=== PATIENT | male | born 2000 | race Caucasian/White ===

== ENCOUNTER 2018-03-15 19:48 | Emergency (ER) | payer OTHER ==
[~2018-03-15] VITALS: Ht 182.8 cm; Wt 93.0 kg
[~2018-03-15 19:48] MED LIST: CEPHALEXIN500 M1 PO; CLARITIN10 MG PO; FLEXERIL10 MG PO; FLONASE ALLERG9.9 ML NAS; MOTRIN600 MG PO; MOTRIN800 MG PO; NAPROSYN500 MG PO; NO DAILY MEDS; PREDNISONE10 MG PO; PREDNISONE50 MG PO; PRILOSEC10 MG PO; TYLENOL325 M1 PO; VALIUM5 MG PO; VICODIN 500 MG-1 TAB PO; ZOFRAN4 MG PO
[2018-03-15 19:49] VITALS: BP 148/56
[2018-03-15 20:26] LABS: BILIRUBIN NEGATIVE (NEGATIVE); BLOOD NEGATIVE (NEGATIVE); CLARITY CLEAR (CLEAR); COLOR YELLOW (YELLOW); GLUCOSE NEGATIVE (NEGATIVE); KETONE NEGATIVE (NEGATIVE); LEUKO ESTERASE 1+ (NEGATIVE); NITRITE NEGATIVE (NEGATIVE); PH 7.5 (5.0-9.0); SPECIFIC GRAVITY <= 1.005 (1.005-1.030); UROBILINOGEN 0.2 E.U./dl (0.2-1.0)
[2018-03-15] MEDS ORDERED: ZOFRAN ODT4 MG SL (20:29)
[2018-03-15 20:38] LABS: BACTERIA TRACE
[2018-03-15 20:39] LABS: WBC 16-20 wbc/hpf (0-5)
[2018-03-15] MEDS ORDERED: DOXYCYCLINE100 M3 PO ×2 (20:45→21:05)
== END 2018-03-15 20:58 | disposition home or self-care (01) ==
LOC: ED 19:48
PROVIDERS: Physician Assistant
DX: S33.5XXA Sprain of ligaments of lumbar spine, initial encounter (principal); N39.0 Urinary tract infection, site not specified; Z79.899 Other long term (current) drug therapy; X50.1XXA Overexertion from prolonged static or awkward postures, initial encounter; Y93.89 Activity, other specified; Y92.89 Other specified places as the place of occurrence of the external cause; Y99.9 Unspecified external cause status

== ENCOUNTER 2018-04-30 21:21 | Emergency (ER) | payer OTHER ==
[~2018-04-30] VITALS: Ht 185.4 cm; Wt 90.7 kg
[~2018-04-30 21:21] MED LIST changes: +DOXYCYCLINE100 M3 PO; +ZOFRAN ODT4 MG SL
[2018-04-30 21:22] VITALS: BP 143/58
== END 2018-04-30 23:48 | disposition home or self-care (01) ==
LOC: ED 21:21
DX: M25.572 Pain in left ankle and joints of left foot (principal); Z79.899 Other long term (current) drug therapy

== ENCOUNTER 2018-05-06 11:43 | Emergency (ER) | payer OTHER ==
[~2018-05-06] VITALS: Ht 185.4 cm; Wt 90.7 kg
[2018-05-06 11:44] VITALS: BP 147/76
== END 2018-05-06 13:17 | disposition home or self-care (01) ==
LOC: ED 11:43
DX: S93.402A Sprain of unspecified ligament of left ankle, initial encounter (principal); S90.02XA Contusion of left ankle, initial encounter; X50.1XXA Overexertion from prolonged static or awkward postures, initial encounter; Y93.89 Activity, other specified; Y92.89 Other specified places as the place of occurrence of the external cause; Y99.9 Unspecified external cause status

== ENCOUNTER 2018-06-23 07:19 | Emergency (ER) | payer OTHER ==
[~2018-06-23] VITALS: Ht 182.8 cm; Wt 90.7 kg
[2018-06-23 07:20] VITALS: BP 132/71
[2018-06-23] MEDS ORDERED: Motrin,Rufen800 MG PO (08:08)
== END 2018-06-23 08:15 | disposition home or self-care (01) ==
LOC: ED 07:19
DX: M54.5 Low back pain (principal); Z98.890 Other specified postprocedural states; V49.59XA Passenger injured in collision with other motor vehicles in traffic accident, initial encounter; Y93.89 Activity, other specified; Y92.413 State road as the place of occurrence of the external cause; Y99.9 Unspecified external cause status

== ENCOUNTER 2019-06-13 23:09 | Emergency (ER) | payer OTHER ==
[~2019-06-13] VITALS: Ht 182.8 cm; Wt 90.7 kg
[~2019-06-13 23:09] MED LIST changes: +Motrin,Rufen800 MG PO
[2019-06-13 23:18] VITALS: BP 134/65
[2019-06-13] MEDS ORDERED: Motrin,Rufen800 MG PO (23:42)
== END 2019-06-14 00:54 | disposition home or self-care (01) ==
LOC: ED 23:09
DX: S60.221A Contusion of right hand, initial encounter (principal); E11.9 Type 2 diabetes mellitus without complications; Z79.899 Other long term (current) drug therapy; W22.8XXA Striking against or struck by other objects, initial encounter; Y93.89 Activity, other specified; Y92.89 Other specified places as the place of occurrence of the external cause; Y99.8 Other external cause status

== ENCOUNTER 2019-07-08 16:24 | Emergency (ER) | payer OTHER ==
[~2019-07-08] VITALS: Ht 185.4 cm; Wt 90.7 kg
[2019-07-08 16:25] VITALS: BP 128/55
[2019-07-08] MEDS ORDERED: NAPROSYN500 MG PO (17:06)
[2019-07-08] MEDS ORDERED: ROBAXIN500 M1 PO (17:06)
[2019-07-08] MEDS ORDERED: MEDROL DOSEPAK4 MG PO (17:06)
== END 2019-07-08 17:35 | disposition home or self-care (01) ==
LOC: ED 16:24
DX: S29.012A Strain of muscle and tendon of back wall of thorax, initial encounter (principal); X50.0XXA Overexertion from strenuous movement or load, initial encounter; Y93.89 Activity, other specified; Y92.89 Other specified places as the place of occurrence of the external cause; Y99.0 Civilian activity done for income or pay

== ENCOUNTER 2019-12-19 23:55 | Emergency (ER) | payer OTHER ==
[~2019-12-19] VITALS: Ht 182.8 cm; Wt 93.0 kg
[~2019-12-19 23:55] MED LIST changes: +MEDROL DOSEPAK4 MG PO; +ROBAXIN500 M1 PO
[2019-12-19 23:59] VITALS: BP 122/41
[2019-12-20] MEDS ORDERED: ZOFRAN4 MG PO (01:08)
== END 2019-12-20 01:15 | disposition home or self-care (01) ==
LOC: ED 23:55
DX: A08.4 Viral intestinal infection, unspecified (principal); R11.2 Nausea with vomiting, unspecified

== ENCOUNTER 2022-09-30 20:20 | Emergency (ER) | payer OTHER ==
[~2022-09-30] VITALS: Ht 182.8 cm; Wt 72.6 kg
[2022-09-30 20:55] VITALS: BP 139/77
== END 2022-09-30 22:20 | disposition home or self-care (01) ==
LOC: ED 20:20
DX: S09.90XA Unspecified injury of head, initial encounter (principal); W22.8XXA Striking against or struck by other objects, initial encounter; Y93.89 Activity, other specified; Y92.89 Other specified places as the place of occurrence of the external cause; Y99.8 Other external cause status

== ENCOUNTER 2023-01-31 13:48 | Emergency (ER) | payer OTHER ==
[~2023-01-31] VITALS: Ht 182.8 cm; Wt 97.5 kg
[2023-01-31 14:05] VITALS: BP 157/57
== END 2023-01-31 15:31 | disposition home or self-care (01) ==
LOC: ED 13:48
DX: H57.89 Other specified disorders of eye and adnexa (principal)

== ENCOUNTER 2024-12-13 01:32 | Emergency (ER) | payer SELFPAY ==
[~2024-12-13] VITALS: Ht 182.9 cm; Wt 97.5 kg
[2024-12-13 01:40] VITALS: BP 153/95
[2024-12-13] MEDS ORDERED: PENICILLIN V POTASSIUM 500 MG TAB PO ONE (01:45)
[2024-12-13] MEDS ORDERED: Acetaminophen/Hydrocodone 5 MG/325 MG TABLET PO ONE (01:45)
[2024-12-13] MEDS ORDERED: PENICILLIN VK500 MG PO (01:45)
[2024-12-13] MEDS ORDERED: Ondansetron Hydrochloride 4 MG TAB SL ONE (01:45)
== END 2024-12-13 01:58 | disposition home or self-care (01) ==
LOC: ED 01:32
DX: K02.9 Dental caries, unspecified (principal); Z98.890 Other specified postprocedural states